=== PATIENT | female | born 1980 | race Caucasian/White ===

== ENCOUNTER → 2017-08-16 | Outpatient (CLI) | payer BC ==
--- NOTE | 2017-08-16 18:39 | CT ---
EXAMINATION TYPE: CT abdomen pelvis w con DATE OF EXAM: 08/16/2017 COMPARISON: NONE HISTORY: RLQ pain CT DLP: 951.7 mGycm Automated exposure control for dose reduction was used. TECHNIQUE: Helical acquisition of images was performed from the lung bases through the pelvis. CONTRAST: Performed with Oral Contrast and with IV Contrast, patient injected with 100ml mL of Omnipaque 300. FINDINGS: Lung bases are clear of infiltrate. There is no pleural effusion. Heart size is normal. Liver spleen pancreas gallbladder appear normal. Bile ducts are not dilated. There is no adrenal mass. There is a 1 cm cyst on the upper pole left kidney. There is an 8 mm cyst i n the posterior left kidney. There is no evidence of a solid renal mass. There is no hydronephrosis. Ureters are not dilated. Bladder distends smoothly. There is no evidence of a pelvic mass. I see no i ntestinal wall thickening. There are no dilated loops. There is no ascites. There is no sign of a pelvic mass. Uterus appears absent. I see no bony destruct daryl process. There is a 3.2 x 1.7 cm oval-shaped soft tissue density in the subcutaneous fat in the r ight inguinal region. There is mild fat stranding around the density. I see no hernia defect. The ant erior abdominal wall appears intact. The bony structures appear intact. IMPRESSION: SUBCUTANEOUS RIGHT LOWER QUADRANT SOFT TISSUE DENSITY MASS WITH SURROUNDING REACTIVE CHANGES. THE MEHDI EARANCE IS NONSPECIFIC. NO HERNIA SEEN. NO SIGNIFICANT DEMONSTRATED ABNORMALITY WITHIN THE ABDOMEN AND PELVIS.
== END | disposition home or self-care (01) ==
LOC: RADCTMAIN 16:25
PROVIDERS: ATTEND Family Medicine
DX: R19.03 Right lower quadrant abdominal swelling, mass and lump (principal)
CPT/HCPCS: 74177; Q9967

== ENCOUNTER 2017-10-19 08:25 | Day surgery (SDC) | payer BC ==
[2017-10-15 16:32] VITALS: BMI 32.0
--- NOTE | 2017-10-19 07:45 | P.GSHP ---
History of Present Illness H&P Date: 10/19/17 CHIEF COMPLAINT: Painful lesions along the right lower abdomen HISTORY OF PRESENT ILLNESS: The patient is a 37 year-old female with history of mass along the abdominal wall, right lower abdomen. She presents today for surgical excision. PAST MEDICAL HISTORY: Please see list. PAST SURGICAL HISTORY: Please see list. MEDICATIONS: Please see list. ALLERGIES: Please see list. SOCIAL HISTORY: No illicit drug use FAMILY HISTORY: No reports of Crohn disease or ulcerative colitis. REVIEW OF ORGAN SYSTEMS: CONSTITUTIONAL: No reports of fevers or chills. GI: Denies any blood in stools or constipation. PHYSICAL EXAM: VITAL SIGNS: Stable Musculoskeletal: No clubbing cyanosis or edema SKIN: Mass along the abdominal wall, right lower GENERAL: Well developed and in no acute distress. Pleasant. HEENT: No sclera icterus. Extraocular movements grossly intact. Moist buccal mucosa. Head is atraumatic, normocephalic. Hears conversational speech. No nasal drainage. NECK: Supple without lymphadenopathy. No JV distention. CHEST: Non-labored respirations and equal bilateral excursions. CARDIOVASCULAR: Regular rate and rhythm. Palpable 2+ radial pulses. ABDOMEN: Soft. Non-tender. Nondistended. NEUROLOGIC: No focal or lateralizing signs. PSYCH: Appropriate affect. Alert and oriented to person, place and time. STUDIES: CT reviewed ASSESSMENT: 1. Mass along abdominal wall, right lower abdomen PLAN: 1. Will proceed of excision of subcutaneous tumors along the abdominal wall 2. DVT prophylaxis. 3. Antibiotic prophylaxis. 4. Time of recovery, at least one week. Past Medical History Past Medical History: No Reported History Additional Past Medical History / Comment(s): HAS SCREWS IN JAW. RLQ ABD MASS. History of Any Multi-Drug Resistant Organisms: None Reported Past Surgical History: Adenoidectomy, Section, Hysterectomy, Tonsillectomy Additional Past Surgical History / Comment(s): Jaw surgery. Past Anesthesia/Blood Transfusion Reactions: No Reported Reaction Smoking Status: Current every day smoker - Past Family History Father Family Medical History: Coronary Artery Disease (CAD) Medications and Allergies Home Medications Medication Instructions Recorded Confirmed Type Cetirizine HCl [Zyrtec] 10 mg PO DAILY 10/15/17 10/15/17 History Naproxen Sodium [Aleve] 220 mg PO BID PRN 10/15/17 10/15/17 History Allergies Allergy/AdvReac Type Severity Reaction Status Date / Time Penicillins Allergy Unknown Verified 10/15/17 16:13
[~2017-10-19 08:25] MED LIST: DEXAMETHASONE SOD PHOSPHATE 10 MG/ML 1 ML VIAL IV ONE; HYDROmorphone 0.5 MG/0.5 ML SYRINGE IVP PRN; LIDOCAINE 1% 20 ML VIAL (10MG/ML) FOR IV START INTRADERMA PRN; MIDAZOLAM 2 MG/2 ML VIAL IV PRN; MORPHINE SULFATE 2 MG/ML SYRINGE IV PRN; ONDANSETRON 4 MG/2 ML VIAL IVP ONE; Pre Op ABX Message 1 EACH MISC MISCELLANE ONE; SCOPOLAMINE 1.5MG/72HR PATCH TRANSDERM ONE
[2017-10-19 08:51] VITALS: TEMP 98
[2017-10-19] MEDS ORDERED: HEPARIN SODIUM,PORCINE 5,000 UNIT/ML 1 ML VIAL SQ STA (08:56)
[2017-10-19] MEDS ORDERED: ceFAZolin IN SWFI 2 GM/20 ML SYRINGE IVP STA (08:56)
[2017-10-19] MEDS: LACTATED RINGERS 1,000 ML IV SCH ×3 (08:59→13:24)
[2017-10-19] MEDS ORDERED: PROPOFOL 10 MG/ML 20 ML VIAL IV ONE (10:27)
[2017-10-19] MEDS ORDERED: MIDAZOLAM 2 MG/2 ML VIAL ONE (10:27)
[2017-10-19] MEDS ORDERED: fentaNYL (PF) 50 MCG/ML 2 ML AMP ONE (10:27)
[2017-10-19] MEDS ORDERED: LIDOCAINE 1% INJ 10MG/ML (20 ML MDV) ONE (10:27)
[2017-10-19] MEDS ORDERED: LIDOCAINE 1%-EPI 1:100,000 30 ML VIAL SQ ONE (10:55)
[2017-10-19] MEDS ORDERED: diphenhydrAMINE 50 MG/ML 1 ML VIAL IVP ONE (11:22)
[2017-10-19] MEDS ORDERED: KETOROLAC 30 MG/ML 1 ML VIAL IVP ONE (11:22)
--- NOTE | 2017-10-19 11:23 | P.OP ---
Date of Procedure: 10/19/17 Description of Procedure: SURGEON: DARLENE ANDERSON MD SLAB POLISHER: NONE. PREOPERATIVE DIAGNOSES: 1. Right lower quadrant abdominal mass. 2. Obesity due to excess calories 3. BMI 32.0 4. History of tobacco abuse POSTOPERATIVE DIAGNOSES: 1. Right lower quadrant abdominal mass. 2. Obesity due to excess calories 3. BMI 32.0 4. History of tobacco abuse OPERATION: 1. Excision of right lower quadrant abdominal wall deep subcutaneous tumor extending to the fascia 5 x 6 cm. ANESTHESIA: MAC with local ESTIMATED BLOOD LOSS: 3 mL. SPECIMENS REMOVED: 1. Abdominal wall mass, right lower quadrant 5 x 6 cm. COMPLICATIONS: None. INDICATIONS: The patient is a 37-year-old female who presents with right lower quadrant pain including increased abdominal wall tenderness and swelling. Surgical options, including excision was discussed. Benefits and risks were described. Informed consent was obtained. DESCRIPTION OF PROCEDURE: Patient was brought into the operating room, laid in supine position. After adequate IV sedation, the abdomen was prepped and draped in standard sterile fashion using ChloraPrep. A timeout protocol was confirmed with the surgical team regarding patient's name including procedures to be performed. Preoperative medications was administered. Next, field block using local was administered. The abdominal mass was measured using a ruler with borders marked with indelible marker. A soft tissue skin flap was developed after using #15 blade into the deep subcutaneous tissues to the fascia. Using Allis clamps, the abdominal mass was palpated and dissected circumferentially using Bovie cautery. The mass was excised to the level of the fascia. Hemostasis was checked with electro-Bovie cautery. The specimen was passed off and measured to be 5 x 6 cm. Next the wound with 3-0 Vicryl for the deep dermis in an interrupted fashion and a running subcuticular suture of 4-0 Monocryl. Another layer using Dermabond tape and liquid was applied. The skin was cleansed. Optifoam dressing was placed. At the end of the procedure, needle, sponge, and instrument count had been verified correct by the certified surgical assistant. The patient was taken to the postanesthesia care unit in stable condition. FINDINGS: 1. Abdominal wall mass involving the deep subcutaneous tissue 5 x 6 cm. Plan - Discharge Summary New Discharge Prescriptions: No Action Cetirizine HCl [Zyrtec] 10 mg PO DAILY Naproxen Sodium [Aleve] 220 mg PO BID PRN PRN Reason: Pain Discharge Medication List Cetirizine HCl [Zyrtec] 10 mg PO DAILY 10/15/17 [History] Naproxen Sodium [Aleve] 220 mg PO BID PRN 10/15/17 [History]
[2017-10-19] MEDS: MEPERIDINE 50 MG/ML SYRINGE IVP ONE ×2 (11:28→11:35)
[2017-10-19 11:33] VITALS: RESP 18
[2017-10-19] MEDS ORDERED: HYDROcodone/APAP 5-325MG 1 EACH TAB PO ONE (13:09)
[2017-10-19 13:21] VITALS: BP 117/79; PULSE 81
== END 2017-10-19 13:50 | disposition home or self-care (01) ==
LOC: OR 08:25
PROVIDERS: ATTEND Surgery Plastic and Reconstructive Surgery
DX: N80.8 Other endometriosis (principal); E66.9 Obesity, unspecified; Z68.32 Body mass index [BMI] 32.0-32.9, adult; F17.210 Nicotine dependence, cigarettes, uncomplicated; Z79.899 Other long term (current) drug therapy; Z88.0 Allergy status to penicillin
CPT/HCPCS: 88305; 22903; J2250; J1200; J1644; J1100; J2175; J2405; J2001; J3010; J1885; J2704; J0690

== ENCOUNTER 2018-07-06 10:04 | Emergency (ER) | payer BC ==
[2018-07-06 10:13] VITALS: BP 140/96; PULSE 104; RESP 18; TEMP 98
[2018-07-06] MEDS ORDERED: KETOROLAC 30 MG/ML 1 ML VIAL IM STA (10:28)
--- NOTE | 2018-07-06 10:32 | ED ---
Upper Extremity HPI - General Chief Complaint: Extremity Injury, Upper Stated Complaint: rt shoulder injury from fall, poss dislocation Time Seen by Provider: 07/06/18 10:15 Source: patient Mode of arrival: ambulatory Limitations: no limitations - History of Present Illness Initial Comments: 38-year-old female patient presents to the emergency department today for evaluation of right shoulder pain. Patient states last evening she was bending forward to pick something up wearing high heels when she lost her balance and fell forward on an outstretched palm. Patient states that the right arm took the brunt of the fall. States that she did initially have shoulder pain but decided to go to bed and sleep it off. States when she woke up this morning the pain in her shoulder significantly worse, states that she is unable to move it due to the pain. States that she was having some tingling to her hands, states that this has improved somewhat. States she has not taking anything for pain or discomfort. She denies hitting her head or losing consciousness with the fall. She denies any neck or back pain. Denies any other injuries. Denies any history of injury to the shoulder. Patient denies any headache, chest pain, shortness of breath, dizziness, weakness, abdominal pain, nausea, vomiting, or difficulties with bowel movements or urination. - Related Data Home Medications Medication Instructions Recorded Confirmed Cetirizine HCl [Zyrtec] 10 mg PO DAILY 10/15/17 07/06/18 Previous Rx's Medication Instructions Recorded Ibuprofen [Motrin] 600 mg PO Q8HR PRN #30 tab 07/06/18 Allergies Allergy/AdvReac Type Severity Reaction Status Date / Time Penicillins Allergy Unknown Verified 07/06/18 10:55 Review of Systems ROS Statement: Those systems with pertinent positive or pertinent negative responses have been documented in the HPI. ROS Other: All systems not noted in ROS Statement are negative. Past Medical History Past Medical History: No Reported History Additional Past Medical History / Comment(s): HAS SCREWS IN JAW. RLQ ABD MASS. History of Any Multi-Drug Resistant Organisms: None Reported Past Surgical History: Adenoidectomy, Section, Hysterectomy, Tonsillectomy Additional Past Surgical History / Comment(s): Jaw surgery. Past Anesthesia/Blood Transfusion Reactions: No Reported Reaction Past Psychological History: No Psychological Hx Reported Smoking Status: Current every day smoker Past Alcohol Use History: Occasional Past Drug Use History: None Reported - Past Family History Father Family Medical History: Coronary Artery Disease (CAD) General Exam Limitations: no limitations General appearance: alert, in no apparent distress, other (This is a well- developed, well-nourished adult female patient in no acute distress. Vital signs upon presentation are temperature 98.0F, pulse 104, respirations 18, blood pressure 140/96, pulse ox 98% on room air.) Eye exam: Present: normal appearance, PERRL, EOMI. Absent: scleral icterus, conjunctival injection, periorbital swelling ENT exam: Present: normal exam, normal oropharynx, mucous membranes moist Neck exam: Present: normal inspection, full ROM, other (Nontender, no step-off, no deformity to firm midline palpation of the posterior cervical spine. Full range of motion without pain or limitation.). Absent: tenderness, meningismus, lymphadenopathy Respiratory exam: Present: normal lung sounds bilaterally. Absent: respiratory distress, wheezes, rales, rhonchi, stridor Cardiovascular Exam: Present: regular rate, normal rhythm, normal heart sounds. Absent: systolic murmur, diastolic murmur, rubs, gallop, clicks Extremities exam: Present: normal inspection, tenderness (Tenderness over the right acromioclavicular joint), normal capillary refill, other (Skin to the right upper extremities pink, warm, and dry. Cap refills less than 3 seconds. Radial pulses 2+ and equal bilaterally. See no evidence of deformity to the shoulder.). Absent: full ROM (Limited range of motion to the right shoulder due to increased pain with movement), pedal edema, joint swelling, calf tenderness Back exam: Present: normal inspection, other (Nontender, no step-off, no deformity to firm midline palpation of the thoracic and lumbar vertebrae. Full range of motion without pain or limitation.). Absent: vertebral tenderness Neurological exam: Present: alert, oriented X3, CN II-XII intact Psychiatric exam: Present: normal affect, normal mood Skin exam: Present: warm, dry, intact, normal color. Absent: rash Course Vital Signs 07/06/18 10:11 Temperature 98 F Pulse Rate 104 H Respiratory 18 Rate Blood Pressure 140/96 O2 Sat by Pulse 98 Oximetry Medical Decision Making - Medical Decision Making 38-year-old female patient presents to the emergency department today for evaluation of right shoulder pain after expressing a fall last evening. Physical examination did reveal some tenderness over the acromioclavicular joint and increased pain with forward flexion and abduction. Patient is unable to externally rotate the arm. X-rays negative for any acute fractures or dislocation. Chief concern is for rotator cuff injury. She'll be discharged home with pain medication at this time. She is instructed to follow-up with orthopedics for further evaluation as soon as possible. Return parameters were discussed in detail. She verbalizes understanding and agrees with this plan. - Radiology Data Radiology results: report reviewed, image reviewed Three-view x-ray of the right shoulder obtained. Report was reviewed in its entirety. Impression by Dr. Sin shows mild degenerative spurring at the before meals joint. Subacromial space is preserved. No acute fracture, subluxation, or dislocation. Small delineation to the greater tuberosity. Visualized right hemithorax is clear. Impression by Dr. iSn shows no acute osseous abnormalities seen. Disposition Clinical Impression: Rotator cuff injury Disposition: HOME SELF-CARE Condition: Good Instructions: Rotator Cuff Injury (ED) Additional Instructions: Remove sling and perform gentle range of motion to 3 times per day. Take medications as directed. Apply ice to the shoulder 20 minutes at a time at least 4 times daily. Follow-up with orthopedics for recheck as soon as possible. Return immediately for any new, worsening, or concerning symptoms. Prescriptions: Ibuprofen [Motrin] 600 mg PO Q8HR PRN #30 tab PRN Reason: Pain Is patient prescribed a controlled substance at d/c from ED?: No Referrals: Xin Jarvis DO [Primary Care Provider] - 1-2 days Time of Disposition: 11:16
--- NOTE | 2018-07-06 10:43 | XR ---
EXAMINATION TYPE: XR shoulder complete RT DATE OF EXAM: 07/06/2018 COMPARISON: NONE HISTORY: 38-year-old female right shoulder pain after fall TECHNIQUE: 3 views FINDINGS: Mild degenerative spurring at the AC joint. Subacromial space is preserved. No acute fracture, sublux ation, or dislocation. Small delineation to the greater tuberosity. Visualized right hemithorax is cl ear. IMPRESSION: No acute osseous abnormality seen.
[2018-07-06] MEDS ORDERED: ACET/COD 300 MG/30 MG STARTER PACK 6 TAB BTL PO STA (11:14)
[2018-07-06] MEDS ORDERED: ONDANSETRON 4 MG ODT STARTER PACK 2 TAB BTL PO STA (11:14)
== END 2018-07-06 11:29 | disposition home or self-care (01) ==
LOC: EC 10:04
DX: S46.001A Unspecified injury of muscle(s) and tendon(s) of the rotator cuff of right shoulder, initial encounter (principal); F17.200 Nicotine dependence, unspecified, uncomplicated; Z88.0 Allergy status to penicillin; Z79.899 Other long term (current) drug therapy
CPT/HCPCS: 73030; 99283; 96372; J1885; S0119

== ENCOUNTER → 2021-09-08 | Outpatient (CLI) | payer BC ==
--- NOTE | 2021-09-12 09:29 | MM ---
Reason for exam: screening (asymptomatic). Baseline mammogram. Physical Findings: A clinical breast exam by your physician is recommended on an annual basis and results should be correlated with mammographic findings. MG Screening Mammo w CAD Bilateral CC and MLO view(s) were taken. There are scattered fibroglandular densities. There is no discrete abnormality. ASSESSMENT: Benign, BI-RAD 2 RECOMMENDATION: Routine screening mammogram of both breasts in 1 year.
== END | disposition home or self-care (01) ==
LOC: RADMAMWWP 09:50
PROVIDERS: ATTEND Family Medicine
DX: Z12.31 Encounter for screening mammogram for malignant neoplasm of breast (principal)
CPT/HCPCS: 77067